=== PATIENT | female | born 1970 | race Caucasian/White ===

== ENCOUNTER 2021-11-21 22:27 | Emergency (ER) | payer OTHER, MEDICAID, SELFPAY ==
[2021-11-21 22:30] VITALS: BP 120/86; PULSE 82; RESP 20; TEMP 36.8; O2SAT 98
== END 2021-11-22 00:59 | disposition left against medical advice (07) ==
PROVIDERS: Emergency Provider Emergency Medicine
DX: Z53.21 Procedure and treatment not carried out due to patient leaving prior to being seen by health care provider (principal)
CPT/HCPCS: 99281

== ENCOUNTER 2022-05-19 14:51 | Emergency (ER) | payer OTHER, SELFPAY ==
[2022-05-19 14:54] VITALS: BP 143/77; PULSE 68; RESP 18; TEMP 36.3; O2SAT 99; BMI 35.4
--- NOTE | 2022-05-19 14:59 | DI.RAD.S_ITS ---
PROCEDURE: XR FINGER LT MIN 2V INDICATIONS: finger injury TECHNIQUE: AP hand, 2 views of the 3rd finger(s) acquired. COMPARISON: None. FINDINGS: Bones: No fractures or dislocations. No suspicious bony lesions. Soft tissues: No suspicious soft tissue calcifications. IMPRESSION: Negative for displaced fracture by plain film. Dictated by: Son Sharma M.D. on 05/19/2022 at 14:34 Approved by: Son Sharma M.D. on 05/19/2022 at 14:35
--- NOTE | 2022-05-19 20:56 | ED.UPPEXIN ---
HPI - Extremity Injury (Upper) General Chief Complaint: Extremity Injury, Upper Stated Complaint: L Hand Middle finger pain, hurt at work Source: patient Mode of arrival: Family Vehicle Related Data Previous Rx's Medication Instructions Recorded estradiol 1 mg tablet (Estrace) 1 mg PO Q DAY ##30 07/26/11 Allergies Allergy/AdvReac Type Severity Reaction Status Date / Time Amoxicillin Allergy Unknown Uncoded 05/19/22 14:54 Hydrocodone Allergy Unknown Uncoded 05/19/22 14:54 LATEX Allergy Unknown Uncoded 05/19/22 14:54 PCN (PENICILLIN) Allergy Unknown Uncoded 05/19/22 14:54 Patient History Social History Smoking Status: Current every day smoker Smoking Status: Current every day smoker tobacco type: cigarettes alcohol intake frequency: holidays/special occasions only Substance Use Type: marijuana Exam Initial Vital Signs Initial Vital Signs: Vital Signs Temperature 97.3 F L 05/19/22 14:54 Pulse Rate 68 05/19/22 14:54 Respiratory Rate 18 05/19/22 14:54 Blood Pressure 143/77 H 05/19/22 14:54 Pulse Oximetry 99 05/19/22 14:54 Oxygen Delivery Method 05/19/22 14:54 Course Orders Ordered: ED Orders 05/19/22 14:59 XR finger LT min 2V Stat Vital Signs Vital signs: Vital Signs - 8 hr 05/19/22 14:54 Temperature 97.3 F L Pulse Rate 68 Respiratory Rate 18 Blood Pressure 143/77 H Pulse Oximetry 99 Oxygen Delivery Method Nasal Cannula Discharge Plan Departure Patient Disposition: Left Without Being Seen Clinical Impression: Patient left after triage
== END 2022-05-19 16:49 | disposition left against medical advice (07) ==
PROVIDERS: Emergency Provider Emergency Medicine
DX: S69.92XA Unspecified injury of left wrist, hand and finger(s), initial encounter (principal); W23.0XXA Caught, crushed, jammed, or pinched between moving objects, initial encounter; Y99.0 Civilian activity done for income or pay
CPT/HCPCS: 73140; 99281; 99284

== ENCOUNTER 2022-05-19 18:24 | Emergency (ER) | payer OTHER, SELFPAY ==
[2022-05-19 19:17] VITALS: BP 150/99; PULSE 68; RESP 18; TEMP 36.8; O2SAT 98; BMI 34.9
--- NOTE | 2022-05-19 19:46 | ED.UPPEXIN ---
HPI - Extremity Injury (Upper) <OJ Kinney Last Filed: 05/19/22 20:22> General Chief Complaint: Extremity Injury, Upper Stated Complaint: L hand middle finger pain, work accident/safeway Time Seen by Provider: 05/19/22 18:48 Source: patient Mode of arrival: Ambulatory History of Present Illness HPI narrative: Patient is a 51 year complaint left middle finger pain that started today while she was at work. She was at work she was closing a glass sliding door and the door slammed her left middle finger. The finger is painful difficult to move at this time. Related Data Previous Rx's Medication Instructions Recorded estradiol 1 mg tablet (Estrace) 1 mg PO Q DAY ##30 07/26/11 Allergies Allergy/AdvReac Type Severity Reaction Status Date / Time Amoxicillin Allergy Unknown Uncoded 05/19/22 14:54 Hydrocodone Allergy Unknown Uncoded 05/19/22 14:54 LATEX Allergy Unknown Uncoded 05/19/22 14:54 PCN (PENICILLIN) Allergy Unknown Uncoded 05/19/22 14:54 Review of Systems <Santiago Childress PA-C - Last Filed: 05/19/22 20:22> Review of Systems Narrative: R.O.S.: General: No fever, chills or fatigue. Cardiovascular: No chest pain or palpitations Respiratory: No S.O.B. HEENT: No congestion, ear pain, rhinorrhea, sore throat or tinnitus Gastrointestinal: No nausea or vomiting : No urinary concerns Skin: No rash or associated abnormalities Musculoskeletal: Pain and swelling to left middle finger? Neurological: Awake, alert and in not apparent distress. No Headaches, changes in vision or other related neurological concerns. Patient History <OJ Kinney Last Filed: 05/19/22 20:22> Social History Smoking Status: Current every day smoker Smoking Status: Current every day smoker tobacco type: cigarettes alcohol intake frequency: holidays/special occasions only Substance Use Type: marijuana Exam <OJ Kinney Last Filed: 05/19/22 20:22> Narrative Exam Narrative: Physical Exam: ? General: normal appearance, well developed, well nourished, alert, and awake. Not in acute distress. ? Head: Normocephalic, no lesions. Chest: Lungs CTAB, no rales, rhonchi or wheezes. ?? Heart: RRR, no murmurs, rubs or gallops. Eyes: PERRLA, EOM's full, conjunctivae clear. ? Neuro: Physiological, no localizing findings, CN3-12 intact. ?? Musculoskeletal: Patient has swelling to the left middle finger. The swelling starts at proximal phalangeal joint and extends to the distal phalangeal joint. The finger is also tender to palpation on the dorsal and volar surfaces. The finger however has intact sensation to touch good capillary refill and good range of motion. Range of motion is good but slightly impeded per patient complained of pain. The finger otherwise has no deformities. ? Skin: Normal, no rashes, no lesions noted. ?? PSYCHIATRIC: The mood is good, no blunted affect. Speech is clear. Thought process is linear, thought content is appropriate. The voice is without significant inflection. Gastrointestinal: Soft; NT; ND; Pos BS with Neg. rebound tenderness. No scars or major deformities noted on Visual Inspection. Initial Vital Signs Initial Vital Signs: Vital Signs Temperature 98.3 F 05/19/22 19:17 Pulse Rate 68 05/19/22 19:17 Respiratory Rate 18 05/19/22 19:17 Blood Pressure 150/99 H 05/19/22 19:17 Pulse Oximetry 98 05/19/22 19:17 Oxygen Delivery Method 05/19/22 19:17 <Renato Hernandes DO - Last Filed: 05/20/22 01:38> Initial Vital Signs Initial Vital Signs: Vital Signs Temperature 98.3 F 05/19/22 19:17 Pulse Rate 68 05/19/22 19:17 Respiratory Rate 18 05/19/22 19:17 Blood Pressure 150/99 H 05/19/22 19:17 Pulse Oximetry 98 05/19/22 19:17 Oxygen Delivery Method 05/19/22 19:17 Course <Santiago Childress PA-C - Last Filed: 05/19/22 20:22> Vital Signs Vital signs: Vital Signs - 8 hr 05/19/22 19:17 Temperature 98.3 F Pulse Rate 68 Respiratory Rate 18 Blood Pressure 150/99 H Pulse Oximetry 98 Oxygen Delivery Method Room Air <Renato Hernandes DO - Last Filed: 05/20/22 01:38> Vital Signs Vital signs: Vital Signs - 8 hr 05/19/22 19:17 Temperature 98.3 F Pulse Rate 68 Respiratory Rate 18 Blood Pressure 150/99 H Pulse Oximetry 98 Oxygen Delivery Method Room Air MDM - Extremity Injury (Upper) <Santiago Childress PA-C - Last Filed: 05/19/22 20:22> Imaging Data Extremity x-ray #1: Radiologist's Impression: [address] [address] XRay Report Signed Patient: Shima Noguera MR#: [id number] : 1970 Acct:[id number] Age/Sex: 51 / F Date of Service: 05/19/22 Loc: ED Accession Number: [id number] ?? Procedure: XR finger LT min 2V Ordering Provider: Mir Josue MD PROCEDURE:? XR FINGER LT MIN 2V ? INDICATIONS:? finger injury ? TECHNIQUE:? AP hand, 2 views of the 3rd finger(s) acquired.? ? COMPARISON:? None. ? FINDINGS:? ? Bones:? No fractures or dislocations.? No suspicious bony lesions.? ? Soft tissues:? No suspicious soft tissue calcifications.? IMPRESSION:? ? Negative for displaced fracture by plain film. ? ? Dictated by: Son Sharma M.D. on 05/19/2022 at 14:34 ? ? Approved by: Son Sharma M.D. on 05/19/2022 at 14:35 ? [facility] [place] Narrative Medical decision making narrative: Patient is a 51-year-old female who presents to the emergency room today with complaint of injury to her left middle finger that occurred while she was at work. X-ray was negative for fracture physical exam was negative for any other emergent concerns. Let was applied the patient requested to help the patient from possibly re-injuring the favored by inadvertent jamming it against some other object. Patient was instructed on care and advised to return to emergency room if any emergent concerns arise. Patient was also advised to report to her primary care provider for any nonemergent concerns arise. Patient agrees with plan. Discharge Plan Departure Patient Disposition: Home Clinical Impression: Injury of left middle finger Instructions: DI for Finger Sprain Activity Restrictions/Additional Instructions: *You have been diagnosed with injury to your left middle finger. I have applied a splint to the finger to help prevent you from re-injuring the finger as it is starting to heal. I suggest she remove the splint when you are no risk for inadvertently re-injuring the finger. Also suggest to continue to take nonsteroidal anti-inflammatories and icing the thing for pain. Also please return to the emergency room if any emergent concerns arise. Not otherwise to report your primary care provider for any nonemergent concerns arise. [ ] *What to do: *Please continue to take your regular medications as directed. [ ] New medication prescriptions sent to your pharmacy: [ ] [ ] New medication written as a paper prescription [x] No new medications given *Please follow up with your primary care provider in 2-3 days, call for an appointment. Let them know you were seen in the Emergency Department and that we ask that you be seen in follow up. We will electronically transmit a record of today's note if your PCP is in our system *If you do not have a primary care provider please contact the [facility] Resource line at [phone]. They will ask some questions about your medical history and help get you set up with a doctor in the community. *Return to Emergency Department if you should have any new, worsening or concerning symptoms, such as [fever greater than 101 F, shaking chills, worsening pain, persistent vomiting or other bothersome symptoms] Prescriptions: No Action estradiol [Estrace] 1 MG tablet 1 mg PO Q DAY Qty: 30 0RF Visit Report Forms: Patient Portal/API <Renato Hernandes DO - Last Filed: 05/20/22 01:38> [facility] ED Attending Gil[place] Attestation: I was immediately available in the department for consultation. This documentation has been reviewed and I agree with assessment and plan. Supervised by Renato Hernandes DO
== END 2022-05-19 21:00 | disposition home or self-care (01) ==
PROVIDERS: Emergency Provider Physician Assistant
DX: S69.92XA Unspecified injury of left wrist, hand and finger(s), initial encounter (principal); W23.0XXA Caught, crushed, jammed, or pinched between moving objects, initial encounter; Y99.0 Civilian activity done for income or pay
CPT/HCPCS: 99281

== ENCOUNTER 2023-09-12 12:50 | Emergency (ER) | payer OTHER, MEDICAID, SELFPAY ==
[2023-09-12 12:54] VITALS: BP 191/103; PULSE 88; RESP 17; TEMP 36.1; O2SAT 97; BMI 34.9
--- NOTE | 2023-09-12 13:20 | DI.RAD.S_ITS ---
PROCEDURE: XR LUMBAR SPINE 2-3V INDICATIONS: low back pain TECHNIQUE: 3 views of the lumbar spine were acquired. COMPARISON: None. FINDINGS: Bones: 5 [id number] vertebrae are present. There is normal bony alignment. No vertebral body compression fractures. No suspicious bony lesions. Soft tissues: Overlying bowel gas pattern is normal. No suspicious soft tissue calcifications. IMPRESSION: No acute fracture. No osseous lesion. If symptoms and/or clinical suspicion for pathology persist, further assessment with repeat, or advanced imaging (e.g., CT, MRI, or bone scan) may be helpful for further assessment. Dictated by: Gatito Aguero M.D. on 09/12/2023 at 14:01 Approved by: Gatito Aguero M.D. on 09/12/2023 at 14:02
[2023-09-12 13:28] VITALS: BP 169/82
[2023-09-12] MEDS: methocarbamoL 500 MG TABLET 1500 MG PO (13:56)
[2023-09-12] MEDS: KETOROLAC 30 MG/ML VIAL IM (13:57)
--- NOTE | 2023-09-12 14:07 | ED_ITS ---
HPI - Back Pain/Injury <Collette Holliday PA-C - Last Filed: 09/12/23 16:08> General Chief Complaint: Back Pain/Injury Stated Complaint: back pain Time Seen by Provider: 09/12/23 13:12 Source: patient History of Present Illness HPI Narrative: Patient is a 52-year-old female smoker who presents with 2 weeks of low back pain. She reports a history of back pain and several years ago had an MRI that showed bulging discs. She has had steroid injections in her back before. She has not recently had back pain and does not identify any precipitating factor for this episode of back pain. She has been taking her home gabapentin, cyclo benzaprine (which she reports taking daily, from her PCP?) and NSAIDs without much pain relief. She has been using ice and heat. She denies any loss of control of bowel or bladder, lower extremity weakness, saddle anesthesia. She denies any trauma or fall. She endorses intermittent tingling in her left leg, no shooting pains. She denies fever, chills, urinary symptoms, history of kidney stones, IV drug use. Related Data Previous Rx's Medication Instructions Recorded estradiol 1 mg tablet (Estrace) 1 mg PO Q DAY ##30 07/26/11 ondansetron 4 mg disintegrating 4 mg PO Q8H PRN nausea and 09/12/23 tablet vomiting #7 tabs oxycodone 5 mg tablet 5 mg PO TID PRN pain #10 tabs 09/12/23 Allergies Allergy/AdvReac Type Severity Reaction Status Date / Time acetaminophen [From Vicodin] Allergy Verified 09/12/23 12:54 ampicillin Allergy Verified 09/12/23 12:54 hydrocodone [From Vicodin] Allergy Verified 09/12/23 12:54 Penicillins Allergy Verified 09/12/23 12:54 Review of Systems <Collette Holliday PA-C - Last Filed: 09/12/23 16:08> Review of Systems ROS Unobtainable: All systems reviewed & are unremarkable except as noted in HPI and below Patient History <Collette Holliday PA-C - Last Filed: 09/12/23 16:08> Social History Smoking Status: Current every day smoker Smoking Status: Current every day smoker tobacco type: cigarettes alcohol intake frequency: holidays/special occasions only Substance Use Type: marijuana Exam <OJ Cuenca Last Filed: 09/12/23 16:08> Narrative Exam Narrative: GENERAL: 52 year old patient appears stated age. Well-developed patient, in significant distress, tearful. NEURO: AOx3. HEAD: Atraumatic. Normocephalic. EYES: Pupils equal round and reactive. Extraocular motions intact. No scleral icterus. No injection or drainage. ENT: Nose without bleeding or purulent drainage. Airway patent. CARDIOVASCULAR: Regular rate and rhythm without murmurs, gallops, or rubs. RESPIRATORY: Clear to auscultation. Breath sounds equal bilaterally. No wheezes, rales, or rhonchi. SPINE: No midline tenderness or step-offs. Tender over the left SI joint a paraspinals. EXTREMITIES: No edema or joint tenderness. Patient with 5/5 strength in lower extremities including flexion extension, hip abduction and adduction. Sensation intact in feet, capillary refill 2 seconds, strong DP pulses. SKIN: No rash or erythema of visible areas Initial Vital Signs Initial Vital Signs: Vital Signs Temperature 97.0 F L 09/12/23 12:54 Pulse Rate 88 09/12/23 12:54 Respiratory Rate 17 09/12/23 12:54 Blood Pressure 191/103 H 09/12/23 12:54 Pulse Oximetry 97 09/12/23 12:54 Oxygen Delivery Method Room Air 09/12/23 12:54 <Yoshi Mortensen DO - Last Filed: 09/12/23 16:31> Initial Vital Signs Initial Vital Signs: Vital Signs Temperature 97.0 F L 09/12/23 12:54 Pulse Rate 88 09/12/23 12:54 Respiratory Rate 17 09/12/23 12:54 Blood Pressure 191/103 H 09/12/23 12:54 Pulse Oximetry 97 09/12/23 12:54 Oxygen Delivery Method Room Air 09/12/23 12:54 Course <Collette Holliday PA-C - Last Filed: 09/12/23 16:08> Orders Ordered: ED Orders 09/12/23 13:20 XR lumbar spine 2-3V Stat Discontinued Medications Ketorolac Tromethamine (Ketorolac 30 Mg/Ml Vial) 30 mg IM NOW ONE Stop: 09/12/23 13:45 Last Admin: 09/12/23 13:57 Dose: 30 mg Documented By: ALYSSA Methocarbamol (Methocarbamol 500 Mg Tablet) 1,500 mg PO NOW ONE Stop: 09/12/23 13:45 Last Admin: 09/12/23 13:56 Dose: 1,500 mg Documented By: ALYSSA Morphine Sulfate (Morphine 4 Mg/Ml Inj) 4 mg IM NOW ONE Stop: 09/12/23 14:37 Last Admin: 09/12/23 14:57 Dose: 4 mg Documented By: ALYSSA Vital Signs Vital signs: Vital Signs - 8 hr 09/12/23 12:54 09/12/23 13:28 Temperature 97.0 F L Pulse Rate 88 Respiratory Rate 17 Blood Pressure 191/103 H 169/82 H Pulse Oximetry 97 Oxygen Delivery Method Room Air <Yoshi Mortensen DO - Last Filed: 09/12/23 16:31> Orders Ordered: ED Orders 09/12/23 13:20 XR lumbar spine 2-3V Stat Discontinued Medications Ketorolac Tromethamine (Ketorolac 30 Mg/Ml Vial) 30 mg IM NOW ONE Stop: 09/12/23 13:45 Last Admin: 09/12/23 13:57 Dose: 30 mg Documented By: ALYSSA Methocarbamol (Methocarbamol 500 Mg Tablet) 1,500 mg PO NOW ONE Stop: 09/12/23 13:45 Last Admin: 09/12/23 13:56 Dose: 1,500 mg Documented By: ALYSSA Morphine Sulfate (Morphine 4 Mg/Ml Inj) 4 mg IM NOW ONE Stop: 09/12/23 14:37 Last Admin: 09/12/23 14:57 Dose: 4 mg Documented By: ALYSSA Vital Signs Vital signs: Vital Signs - 8 hr 09/12/23 12:54 09/12/23 13:28 Temperature 97.0 F L Pulse Rate 88 Respiratory Rate 17 Blood Pressure 191/103 H 169/82 H Pulse Oximetry 97 Oxygen Delivery Method Room Air MDM - Back Pain/Injury <Collette Holliday PA-C - Last Filed: 09/12/23 16:08> Lab Data Labs: Urine Dip Bedside Urine Glucose Negative Bedside Urine Bilirubin - Negative Bedside Urine Ketone - Negative Urine Specific [place] 1.015 Bedside Urine Occult Blood - Negative Bedside Urine pH 7.5 Bedside Urine Protein - Negative Bedside Urine Urobilinogen - Negative Bedside Urine Nitrite - Negative Bedside Urine Leukocytes - Negative Esterase Imaging Data lumbar spine xray: Radiologist's Impression: PROCEDURE: XR LUMBAR SPINE 2-3V INDICATIONS: low back pain TECHNIQUE: 3 views of the lumbar spine were acquired. COMPARISON: None. FINDINGS: Bones: 5 [id number] vertebrae are present. There is normal bony alignment. No vertebral body compression fractures. No suspicious bony lesions. Soft tissues: Overlying bowel gas pattern is normal. No suspicious soft tissue calcifications. IMPRESSION: No acute fracture. No osseous lesion. If symptoms and/or clinical suspicion for pathology persist, further assessment with repeat, or advanced imaging (e.g., CT, MRI, or bone scan) may be helpful for further assessment. Dictated by: Gatito Aguero M.D. on 09/12/2023 at 14:01 Approved by: Gatito Aguero M.D. on 09/12/2023 at 14:02 [facility] Narrative Medical decision making narrative: Multiple etiologies for patient's symptoms considered including, but not limited to: Low back strain, sciatica, lumbar fracture, pyelonephritis, nephrolithiasis, UTI No history of trauma or injury to raise suspicion for fracture. X-rays unremarkable. Patient with no red flags for cauda equina. Suspect lumbar strain. Patient given Toradol, methocarbamol and IM morphine, after which she experienced a decrease in her pain. She was able to ambulate. A urinalysis was negative for signs of infection or blood. Discharged patient home with ondansetron for nausea, which she gets with opiate medications, and a small script of oxycodone for very severe pain. Patient understands narcotic discharge precautions as well as return precautions. A review of [place] does not show a pattern of repeat ER visits and a review of the state drug monitoring program does not show frequent prescriptions of controlled substances. Patient has a follow up appointment scheduled with her primary care at the [facility] residency clinic next week at which point she can discuss PT or other follow up care. Patient's symptoms improved over duration of stay with above-stated therapies. Findings and discharge diagnosis discussed with patient/family followed by dustin david of understanding Return precautions discussed with patient/family whom verbalize understanding of diagnosis and plan <Yoshi Mortensen DO - Last Filed: 02/01/24 16:31> Lab Data Labs: Urine Dip Bedside Urine Glucose Negative Bedside Urine Bilirubin - Negative Bedside Urine Ketone - Negative Urine Specific [place] 1.015 Bedside Urine Occult Blood - Negative Bedside Urine pH 7.5 Bedside Urine Protein - Negative Bedside Urine Urobilinogen - Negative Bedside Urine Nitrite - Negative Bedside Urine Leukocytes - Negative Esterase Discharge Plan Departure Patient Disposition: Home Clinical Impression: Strain of lumbar region Qualifiers: Encounter type: initial encounter Qualified Code(s): S39.012A - Strain of muscle, fascia and tendon of lower back, initial encounter Instructions: DI for Low Back Pain, DI for Back Strain or Sprain Activity Restrictions/Additional Instructions: *You have been diagnosed with low back strain. You were given methocarbamol, Toradol and intramuscular morphine in the emergency room with some relief of your pain. I have prescribed a short course of narcotic medication to be used at home for severe pain only. Please take Tylenol and ibuprofen 1st to try and manage her pain, as well as using ice and heat. Please return to the emergency room if you experience any loss of control of bowel or bladder, uncontrollable pain, numbness in your groin or other severe symptoms. Please follow up with your primary care next week for ongoing management and consideration of physical therapy referral. *What to do: *Please continue to take your regular medications as directed. [x] New medication prescriptions sent to your pharmacy: [ ] [ ] New medication written as a paper prescription [ ] No new medications given *Please follow up with your primary care provider in 2-3 days, call for an appointment. Let them know you were seen in the Emergency Department and that we ask that you be seen in follow up. We will electronically transmit a record of today's note if your PCP is in our system *If you do not have a primary care provider please contact the [facility] Resource line at [phone]. They will ask some questions about your medical history and help get you set up with a doctor in the community. *Return to Emergency Department if you should have any new, worsening or concerning symptoms, such as [fever greater than 101 F, shaking chills, worsening pain, persistent vomiting or other concerning symptoms]. You have been prescribed a short course of narcotic medications. These are potentially dangerous and addictive medications that should be used carefully. While on these medications you cannot drive or operate heavy machinery. Do not drink alcohol or use other sedative medications while you are taking this medication. Additionally, you cannot sign legal documents or perform any duties such as this. Many people get constipated on narcotic medications so it would be advisable to discuss stool softeners with the pharmacist when you black pickler your prescription. Please understand that we cannot provide further refills of narcotics or controlled substances through the ED and your pain management will need to be through your Primary Care Provider. Prescriptions: New ondansetron 4 mg tablet,disintegrating 4 mg PO Q8H PRN (Reason: nausea and vomiting) Qty: 7 0RF oxycodone 5 mg tablet 5 mg PO TID PRN (Reason: pain) Qty: 10 0RF No Action estradiol [Estrace] 1 MG tablet 1 mg PO Q DAY Qty: 30 0RF Referrals: Diego Sheikh MD [Primary Care Provider] - Stand Alone Forms: Patient Portal/API ED Sign-out <Yoshi Mortensen, DO - Last Filed: 09/12/23 16:31> [facility]: Dr Mortensen Co-Sign Statement: I was available for consultation during this patient's emergency department visit. This chart is signed by myself for administrative purposes only. I did not have direct contact with this patient during this visit. They were seen independently by the APC.
[2023-09-12] MEDS: MORPHINE 4 MG/ML INJ IM (14:57)
== END 2023-09-12 15:28 | disposition home or self-care (01) ==
PROVIDERS: Emergency Provider Physician Assistant; PCP Family Medicine Addiction Medicine
DX: S39.012A Strain of muscle, fascia and tendon of lower back, initial encounter (principal); X58.XXXA Exposure to other specified factors, initial encounter
CPT/HCPCS: 72100; 81003; 96372; 99283; J1885; J2270

== ENCOUNTER 2024-01-26 10:08 | Emergency (ER) | payer OTHER, MEDICAID, SELFPAY ==
[2024-01-26] VITALS (10 sets, daily range): BP systolic 132–195; BP diastolic 77–96; PULSE 62–77; RESP 18; TEMP 36.5; O2SAT 96–100; BMI 34.4
--- NOTE | 2024-01-26 10:26 | ED.HA ---
HPI - Headache General Chief Complaint: Headache Stated Complaint: SERIOUS MIGRAINE COLLAPSED AT WORK Time Seen by Provider: 01/26/24 10:09 Mode of arrival: Ambulatory History of Present Illness HPI Narrative: 53-year-old female with history of migraines, fibromyalgia presents by private vehicle for migraine with nausea and vomiting. Patient states that normally she can take a Percocet go to sleep which helps her migraine, but it has persisted for several days and is not getting better. Took for Imitrex yesterday and had a near syncopal episode. Patient has had to come to the emergency department previously for migraines. Related Data Previous Rx's Medication Instructions Recorded estradiol 1 mg tablet (Estrace) 1 mg PO Q DAY ##30 07/26/11 ondansetron 4 mg disintegrating 4 mg PO Q8H PRN nausea and 09/12/23 tablet vomiting #7 tabs oxycodone 5 mg tablet 5 mg PO TID PRN pain #10 tabs 09/12/23 Allergies Allergy/AdvReac Type Severity Reaction Status Date / Time acetaminophen [From Vicodin] Allergy Verified 09/12/23 12:54 ampicillin Allergy Verified 09/12/23 12:54 hydrocodone [From Vicodin] Allergy Verified 09/12/23 12:54 Penicillins Allergy Verified 09/12/23 12:54 Patient History Social History Smoking Status: Current every day smoker Smoking Status: Current every day smoker tobacco type: cigarettes alcohol intake frequency: holidays/special occasions only Substance Use Type: marijuana Exam Initial Vital Signs Initial Vital Signs: Vital Signs Pulse Oximetry 98 01/26/24 10:13 Const: Awake, alert, uncomfortable, in pain Cardiac: regular rate, regular rhythm RESP: unlabored, clear bilaterally, no wheezing GI: Soft, nontender, nondistended, no rebound, no guarding Skin: Warm, Dry, intact, no rashes Neuro: AO x3, CN II-XII grossly intact, moves all extremities Course Orders Ordered: Discontinued Medications Diphenhydramine HCl (Diphenhydramine 50 Mg/Ml Vial) 50 mg IV NOW ONE Stop: 01/26/24 10:28 Last Admin: 01/26/24 10:50 Dose: 50 mg Documented By: SABINO Acetaminophen (Ofirmev) 1,000 mg in 100 mls @ 400 mls/hr IV NOW ONE Stop: 01/26/24 10:41 Last Infusion: 01/26/24 11:33 Dose: Infused Documented By: Admin: 01/26/24 11:08 Dose: 400 mls/hr Documented By: ROLAND Sodium Chloride (Normal Saline 0.9%) 1,000 mls @ 1,000 mls/hr IV BOLUS ONE Stop: 01/26/24 11:26 Last Infusion: 01/26/24 12:42 Dose: Infused Documented By: Admin: 01/26/24 10:49 Dose: 1,000 mls/hr Documented By: SABINO Ketorolac Tromethamine (Ketorolac 30 Mg/Ml Vial) 15 mg IV NOW ONE Stop: 01/26/24 10:28 Last Admin: 01/26/24 10:51 Dose: 15 mg Documented By: SABINO Metoclopramide HCl (Metoclopramide 10 Mg/2 Ml Inj) 10 mg IV NOW ONE Stop: 01/26/24 10:28 Last Admin: 01/26/24 10:52 Dose: 10 mg Documented By: SABINO Vital Signs Vital signs: Vital Signs - 8 hr 01/26/24 10:13 01/26/24 10:14 01/26/24 10:14 Temperature Pulse Rate 76 Respiratory Rate Blood Pressure 195/89 H Pulse Oximetry 98 97 Oxygen Delivery Method 01/26/24 10:17 01/26/24 10:30 01/26/24 10:31 Temperature 97.7 F Pulse Rate 70 62 Respiratory Rate 18 Blood Pressure 195/89 H 159/77 H Pulse Oximetry 97 97 Oxygen Delivery Method Room Air 01/26/24 10:31 01/26/24 11:00 01/26/24 11:03 Temperature Pulse Rate 68 77 Respiratory Rate Blood Pressure 158/86 H Pulse Oximetry 96 99 Oxygen Delivery Method 01/26/24 11:03 01/26/24 11:30 01/26/24 11:30 Temperature Pulse Rate 70 63 Respiratory Rate Blood Pressure 132/85 Pulse Oximetry 97 97 Oxygen Delivery Method 01/26/24 12:00 01/26/24 12:00 Temperature Pulse Rate 75 Respiratory Rate Blood Pressure 145/96 H Pulse Oximetry 97 Oxygen Delivery Method MDM - Headache Differential Diagnosis Differential diagnosis: Likely migraine, tension headache and headache MDM Narrative Medical decision making narrative: Four days of persistent migraine headache similar to previous episodes. Neurologically intact without focal deficits. Patient was given a migraine cocktail with complete resolution of her symptoms. Patient is subsequently able to tolerate p.o., ambulatory without distress, requesting to go home. Patient recommended to follow up with her primary care physician. Patient requested a note for work, which was provided. Discharge Plan Departure Patient Disposition: Home Clinical Impression: Migraine Instructions: DI for Migraine Activity Restrictions/Additional Instructions: FOLLOW UP NEEDED WITH THE PRIMARY CARE DOCTOR. CONTINUE YOUR OTHER MIGRAINE MEDICATIONS PREVIOUSLY PRESCRIBED Prescriptions: No Action estradiol [Estrace] 1 MG tablet 1 mg PO Q DAY Qty: 30 0RF ondansetron 4 mg tablet,disintegrating 4 mg PO Q8H PRN (Reason: nausea and vomiting) Qty: 7 0RF oxycodone 5 mg tablet 5 mg PO TID PRN (Reason: pain) Qty: 10 0RF Referrals: Diego Sheikh MD [Primary Care Provider] - Stand Alone Forms: Patient Portal/API, Work Release Note
[2024-01-26] MEDS: SODIUM CHLORIDE 0.9% 1,000 ML 1000 ML IV (10:49)
[2024-01-26] MEDS: diphenhydrAMINE 50 MG/ML VIAL IV (10:50)
[2024-01-26] MEDS: KETOROLAC 30 MG/ML VIAL 15 MG IV (10:51)
[2024-01-26] MEDS: METOCLOPRAMIDE 10 MG/2 ML INJ IV (10:52)
[2024-01-26] MEDS: ACETAMINOPHEN IV 1,000 MG/100 ML VIAL 400 MG IV (11:08)
--- NOTE | 2024-01-26 11:26 | PC.NURSE ---
Patient stated she took 4 imitrex yesterday prior to her near syncope and fall. Educated patient on correct dosing and that taking too much can cause rebound and severe headaches. Gave patient print out patient information on Imitrex to take home. Patient acknowledged education.
== END 2024-01-26 12:43 | disposition home or self-care (01) ==
PROVIDERS: Emergency Provider Emergency Medicine; PCP Family Medicine Addiction Medicine
DX: G43.909 Migraine, unspecified, not intractable, without status migrainosus (principal)
CPT/HCPCS: 36415; 96365; 96375; 99284; J0136; J1200; J1885; J2765

== ENCOUNTER → 2024-12-14 12:08 | Outpatient (CLI) | payer OTHER, SELFPAY ==
--- NOTE | 2024-12-14 12:10 | DI.NM.S_ITS ---
PROCEDURE: NM MAURO PERF SPECT R&S PHARM Rest and pharmacological stress myocardial perfusion SPECT with gated imaging and ejection fraction RADIOPHARMACEUTICAL: 26.0 mCi Tc-99m tetrafosmin IV at rest and 27.0 mCi Tc-99m tetrafosmin IV at peak effect of pharmacological stress. [id number] was performed. INDICATIONS: CHEST PAIN PQRS ATTESTATIONS: Measure 322 - Is this imaging test primarily performed on a low-risk surgery patient for preoperative evaluation within 30 days preceding their low-risk non-cardiac surgery? Low-risk surgery is defined as cardiac or myocardial infarction less than 1%, including (but not limited to) endoscopic procedures, superficial procedures, cataract surgery, and excisional breast surgery: Answer: No Measure 323 - Is this imaging test performed primarily for the monitoring of an asymptomatic patient who had percutaneous coronary intervention on the visit date or within 2 years of the visit date? Answer: No Measure 324 - Is this imaging test performed primarily for the initial detection and risk assessment on an asymptomatic, low coronary heart disease patient? Low CHD risk definition = clinicians should consider the maximum number of available patient factors used to estimate risk based on [place] (ATP III criteria), typically age, gender, diabetes, smoking status, and use of blood pressure medication, and integrate age appropriate estimates for missing elements, such as LDL or standard blood pressure. Answer: No TECHNIQUE: Radiopharmaceutical was injected at peak stress test, and also at rest. SPECT images were obtained. SPECT myocardial perfusion images were displayed in short axis, horizontal long axis, and vertical long axis views. Gated images were reviewed using [employer] software. COMPARISON: None. CARDIAC STRESS: A pharmacologic stress test was performed under the supervision of an attending staff, using an infusion of 0.4 mg of Lexiscan. Hemodynamic data: There is normal blood pressure and heart rate response to pharmacologic stress. Symptoms: The patient denied anginal chest pain. Aminophylline: None EKG: No diagnostic changes of ischemia; no ectopy. FINDINGS: Raw data: There is good myocardial uptake of radiotracer. No significant motion artifacts. Vihu-so-ooxaq ratio is 0.20 (normal is less than 0.38 for tetrafosmin tracer). Left ventricle function: Gated images demonstrate normal left ventricular wall thickening. No segmental wall motion abnormalities. No transient ischemic dilation; TID is 0.82 (normal less than 1.3). Left ventricle resting end diastolic volume is 104 mL. Left ventricle stress ejection fraction is 77; normal range is above 45%. Myocardial perfusion: There is normal distribution of activity in the right and left ventricular myocardium. No fixed or reversible perfusion defects. IMPRESSION: Negative Lexiscan myocardial perfusion scan for ischemia and infarction. Dictated by: Tru Jimenez M.D. on 12/21/2024 at 17:03 Approved by: Tru Jimenez M.D. on 12/21/2024 at 17:04
== END ==
LOC: NUCM 12:10
PROVIDERS: PCP Family Medicine Addiction Medicine; Referring Provider Internal Medicine; Visit Provider Internal Medicine
DX: R07.9 Chest pain, unspecified (principal)
CPT/HCPCS: 78452; 93017; A9502; J2785